=== PATIENT | female | born 1995 | race Caucasian/White ===

== ENCOUNTER 2019-07-29 17:29 | Outpatient (CLI) | payer BC ==
[~2019-07-29] VITALS: Ht 175.3 cm; Wt 101.0 kg
[2019-07-29 17:58] VITALS: BP 108/60
[2019-07-29 18:24] LABS: MICROSCOPIC INDICATED
[2019-07-29] MEDS ORDERED: PREN1TAB60 PO (18:53)
== END 2019-07-29 19:57 | disposition home or self-care (01) ==
LOC: LDOP 17:29
PROVIDERS: ATTEND Obstetrics & Gynecology
DX: O26.893 Other specified pregnancy related conditions, third trimester (principal); R10.9 Unspecified abdominal pain; Z87.891 Personal history of nicotine dependence
CPT/HCPCS: 59025; 81001; 87086; 99201; G0463

== ENCOUNTER 2019-09-10 17:58 | Inpatient (IN) | payer BC ==
[~2019-09-10] VITALS: Ht 175.3 cm; Wt 107.0 kg
[~2019-09-10 17:58] MED LIST: PREN1TAB60 PO
[2019-09-10] MEDS ORDERED: OXYTOCIN 30U/ 0.9% NaCL 500ML 500 ML IV ONE (18:20)
[2019-09-10] MEDS ORDERED: D5%-LACTATED RINGERS 1,000 ML IV SCH (18:20)
[2019-09-10] MEDS ORDERED: LACTATED RINGERS 1,000 ML IV SCH ×2 (18:20→21:30)
[2019-09-10 18:29] VITALS: BP 122/82
[2019-09-10] MEDS ORDERED: ONDANSETRON 2MG/ML, 2ML IVPush PRN ×2 (18:30→21:30)
[2019-09-10] MEDS ORDERED: FENTANYL PF 100 MCG/2ML IVPush PRN (18:30)
[2019-09-10] MEDS ORDERED: CALCIUM CARBONATE 500 MG TAB.CHEW PO PRN ×2 (18:30→23:30)
[2019-09-10] MEDS ORDERED: FENTANYL PF 100 MCG/2ML IV PRN (18:30)
[2019-09-10] MEDS ORDERED: TERBUTALINE 1 MG/ML, 1ML SQ PRN (18:30)
[2019-09-10] MEDS ORDERED: TERBUTALINE 1 MG/ML, 1ML IVPush PRN (18:30)
[2019-09-10 18:53] LABS: BASOPHILS # (AUTO) 0.04 x10^3/uL (0-0.1); BASOPHILS % (AUTO) 0 % (0-1); EOSINOPHILS # (AUTO) 0.17 x10^3/uL (0-0.4); EOSINOPHILS % (AUTO) 1 % (1-7); LYMPHOCYTES # (AUTO) 0.97 x10^3/uL (1-3.4); LYMPHOCYTES % (AUTO) 8 % (22-44); MD NO; MEAN CORPUSCULAR HEMOGLOBIN 31.6 pg (27.0-34.8); MEAN CORPUSCULAR HGB CONC 33.6 g/dL (32.4-35.8); MEAN CORPUSCULAR VOLUME 94.1 fL (80-100); MEAN PLATELET VOLUME 7.8 fL (7.4-10.4); MONOCYTES # (AUTO) 1.01 x10^3/uL (0.2-0.8); MONOCYTES % (AUTO) 8 % (2-9); NEUTROPHILS # (AUTO) 10.78 x10^3/uL (1.8-6.8); NEUTROPHILS % (AUTO) 83 % (42-75); PLATELET COUNT 239 x10^3/uL (130-400); RED BLOOD COUNT 4.22 x10^6/uL (3.82-5.3); RED CELL DISTRIBUTION WIDTH 13.1 % (9.6-15.2)
[2019-09-10] MEDS ORDERED: OXYTOCIN 30U/ 0.9% NaCL 500ML 500 ML ONE (19:04)
[2019-09-10] MEDS ORDERED: MISOPROSTOL 200 MCG TABLET ONE (19:05)
[2019-09-10] MEDS ORDERED: LIDOCAINE 1%, 20ML ONE (19:05)
[2019-09-10] MEDS ORDERED: FENTANYL/BUPIV./NS/PF 250 ML EPIDCONT SCH ×2 (19:42→21:30)
[2019-09-10 19:44] VITALS: BP 126/82
[2019-09-10] MEDS ORDERED: FENTANYL PF 500 MCG, BUPIVACAINE/PF 0.5%, 30ML 62.5 ML in SODIUM CHLORIDE 0.9% 177.5 ML EPIDCONT SCH (20:00)
[2019-09-10] MEDS ORDERED: FENTANYL PF 100 MCG/2ML ONE (20:17)
[2019-09-10] MEDS ORDERED: BUPIVACAINE 0.25% ONE (21:06)
[2019-09-10] MEDS ORDERED: EPHEDRINE 50 MG/ML, 1ML IVPush PRN (21:30)
[2019-09-10] MEDS ORDERED: DIPHENHYDRAMINE 50 MG/ML, 1ML IVPush PRN (21:30)
[2019-09-10] MEDS ORDERED: LACTATED RINGERS 1,000 ML IVBOLUS PRN (21:30)
[2019-09-10] MEDS ORDERED: NALOXONE 0.4 MG/ML, 1ML IVPush PRN (21:30)
[2019-09-10] MEDS: OXYTOCIN 30U/ 0.9% NaCL 500ML 500 ML IV SCH (23:25)
[2019-09-10] MEDS ORDERED: ACETAMINOPHEN 325 MG TABLET PO PRN ×2 (23:30)
[2019-09-10] MEDS ORDERED: ONDANSETRON 2MG/ML, 2ML IV PRN (23:30)
[2019-09-10] MEDS ORDERED: BISACODYL 10 MG SUPP PR PRN (23:30)
[2019-09-10] MEDS ORDERED: HYDROcodone/APAP 5/325 TABLET PO PRN (23:30)
[2019-09-10] MEDS ORDERED: MISOPROSTOL 200 MCG TABLET PR PRN (23:30)
[2019-09-10] MEDS ORDERED: SIMETHICONE 80 MG CHEW TAB PO PRN (23:30)
[2019-09-11] MEDS ORDERED: OXYTOCIN 30U/ 0.9% NaCL 500ML 500 ML ONE (00:48)
[2019-09-11] MEDS: OXYTOCIN 30U/ 0.9% NaCL 500ML 500 ML IV SCH ×4 (00:51→19:25)
[2019-09-11 01:30] VITALS: BP 100/63
[2019-09-11] MEDS: IBUPROFEN 600 MG TABLET PO PRN ×4 (02:50→23:48)
[2019-09-11 04:30] VITALS: BP 106/69
[2019-09-11 07:25] LABS: MEAN CORPUSCULAR HEMOGLOBIN 31.6 pg (27.0-34.8); MEAN CORPUSCULAR HGB CONC 34.3 g/dL (32.4-35.8); MEAN CORPUSCULAR VOLUME 92.3 fL (80-100); MEAN PLATELET VOLUME 7.4 fL (7.4-10.4); PLATELET COUNT 221 x10^3/uL (130-400); RED BLOOD COUNT 4.01 x10^6/uL (3.82-5.3)
[2019-09-11 07:50] VITALS: BP 107/70
[2019-09-11 08:03] LABS: BASOPHILS # (AUTO) 0.02 x10^3/uL (0-0.1); BASOPHILS % (AUTO) 0 % (0-1); EOSINOPHILS # (AUTO) 0.03 x10^3/uL (0-0.4); EOSINOPHILS % (AUTO) 0 % (1-7); LYMPHOCYTES # (AUTO) 1.49 x10^3/uL (1-3.4); LYMPHOCYTES % (AUTO) 8 % (22-44); MD SCAN; MONOCYTES # (AUTO) 1.27 x10^3/uL (0.2-0.8); MONOCYTES % (AUTO) 7 % (2-9); NEUTROPHILS # (AUTO) 15.13 x10^3/uL (1.8-6.8); NEUTROPHILS % (AUTO) 84 % (42-75)
[2019-09-11] MEDS: DOCUSATE 100 MG CAPSULE PO PRN ×2 (08:40→20:02)
[2019-09-11] MEDS: PRENATAL VIT/IRON/FA 1 EACH TABLET PO SCH (08:40)
[2019-09-11] MEDS: HYDROcodone/APAP 5/325 TABLET PO PRN ×3 (13:39→23:48)
[2019-09-11 16:00] VITALS: BP 105/72
[2019-09-11 19:35] VITALS: BP 104/67
[2019-09-12 00:09] VITALS: BP 118/83
[2019-09-12 03:11] VITALS: BP 97/68
[2019-09-12] MEDS: OXYTOCIN 30U/ 0.9% NaCL 500ML 500 ML IV SCH (05:25)
[2019-09-12] MEDS: HYDROcodone/APAP 5/325 TABLET PO PRN (05:45)
[2019-09-12] MEDS: IBUPROFEN 600 MG TABLET PO PRN (05:45)
[2019-09-12 08:20] VITALS: BP 98/57
[2019-09-12] MEDS: PRENATAL VIT/IRON/FA 1 EACH TABLET PO SCH (09:00)
[2019-09-12] MEDS: DOCUSATE 100 MG CAPSULE PO PRN (09:14)
[2019-09-12] MEDS ORDERED: IBUP-1222 PO (09:27)
== END 2019-09-12 11:22 | disposition home or self-care (01) | DRG 807 ==
LOC: LDOP 17:58 → LDIP 18:31 → 2NW 09-11 01:15
PROVIDERS: ADMIT Obstetrics & Gynecology; ATTEND Obstetrics & Gynecology
PROC: 10E0XZZ Delivery of Products of Conception, External Approach (ICD-10-PCS; principal; 2019-09-10)
PROC: 0KQM0ZZ Repair Perineum Muscle, Open Approach (ICD-10-PCS; 2019-09-10)
PROC: 3E0R3BZ Introduction of Anesthetic Agent into Spinal Canal, Percutaneous Approach (ICD-10-PCS; 2019-09-10)
PROC: 00HU33Z Insertion of Infusion Device into Spinal Canal, Percutaneous Approach (ICD-10-PCS; 2019-09-10)
DX: O76 Abnormality in fetal heart rate and rhythm complicating labor and delivery (principal); Z37.0 Single live birth; E66.9 Obesity, unspecified; O66.0 Obstructed labor due to shoulder dystocia; O70.1 Second degree perineal laceration during delivery; O99.214 Obesity complicating childbirth; Z3A.39 39 weeks gestation of pregnancy; Z91.018 Allergy to other foods; Z80.6 Family history of leukemia; Z80.7 Family history of other malignant neoplasms of lymphoid, hematopoietic and related tissues; Z82.49 Family history of ischemic heart disease and other diseases of the circulatory system
CPT/HCPCS: 36415; 82803; 85025; 86592; 86850; 86900; G0378; J2590; J3010; J7120